=== PATIENT | female | born 1955 | race Caucasian/White ===

== ENCOUNTER → 2016-11-24 | Outpatient (CLI) | payer BC ==
[~2016-11-24] MED LIST: AMITRYPTYLINE PO; AMLODIPINE BESY10 MG PO; AUGMENTIN875 MG PO; MED FOR REFLUX; MUCUS RELIEF C400 MG PO; OMEPRAZOLE20 M1 PO; PROTONIX PO; TRIAMTERENE-HC1 EAC1 PO; VITAMIN B 12 PO; [UNRECOGNIZED DRUG - REMARK]
--- NOTE | ~2016-11-24 | BD1 ---
[facility] A Service of [facility] & [facility] RADIOLOGY TEXT RESULTS PATIENT: WILLIAM CARMEN LOCATION: [facility] : 53 UNIT #: [id number] AGE: [address]: Brad Curtis MD SEX: F ORDER DR: [id number] [facility] [address] [place], [place] [address] [id number] O MR#: [id number] Acc #: [id number] NAME: WILLIAM CARMEN : 1955 SEX: F STUDY DATE/TIME: 11/24/2016 9:54 UNIT: [facility] ROOM: STUDY DESCRIPTION: BD Dexa Bone Dens 1+ Site Attending Physician: Brad Curtis M.D. Referring Physician: Brad Curtis M.D. Ordering Physician: Brad Curtis M.D. Primary Care Physician: Shaggy Sterling M.D. MEDICAL IMAGING REPORT This report is preliminary unless electronic signature is present EXAM DXA scan 11/24/2016 HISTORY Status post menopause with no hormone replacement therapy. Osteopenia. Hysterectomy at age 33 with removal of 1 ovary. Family history of breast carcinoma. Arthritis. Hypertension with blood pressure medication for 2 years. FINDINGS Bone mineral density in the lumbar spine from L1-L4 is 0.782 g/cm2, which is 2.4 standard deviations below the mean when compared to the young adult reference population, which is characteristic of osteopenia. This is 0.8 standard deviation below the mean when compared to the age-matched population. Bone mineral density in the left femoral neck was 0.683 g/cm2, which is 1.5 standard deviations below the mean when compared to the young adult reference population, which is characteristic of osteopenia. This is 0.1 standard deviation below the mean when compared to the age-matched population. IMPRESSION Bone mineral density in the lumbar spine and left hip characteristic of osteopenia. Dictated by... Mack Sparks M.D. THIS IS AN ELECTRONICALLY VERIFIED REPORT Mack Sparks M.D. at 11/27/2016 7:32 AM CLIF/el [facility] A Service of [facility] & [facility] RADIOLOGY TEXT RESULTS PATIENT: WILLIAM CARMEN LOCATION: [facility] : 53 UNIT #: [id number] AGE: [address]: Brad Curtis MD SEX: F ORDER DR: TD: 11/24/2016 19:12 JOB #: [id number] MEDICAL IMAGING REPORT Page 1 of 1 COPY
== END | disposition home or self-care (01) ==
LOC: CWCC 09:42
DX: Z13.820 Encounter for screening for osteoporosis (principal); K21.9 Gastro-esophageal reflux disease without esophagitis; R49.9 Unspecified voice and resonance disorder; Z78.0 Asymptomatic menopausal state
CPT/HCPCS: 77080